=== PATIENT | male | born 1970 | race Caucasian/White ===

== ENCOUNTER 2023-08-03 08:15 | Day surgery (SDC) | payer BC ==
[2023-08-02 14:42] LABS: Absolute Lymphocytes (CBC) 1.7 K/uL (0.7-4.9); Hematocrit 36.9 % (39.6-49.0); MCV 93.6 fL (80-100); Platelets 225 thou/uL (152-406); RBC Red Blood Cell Count 3.94 M/uL (4.33-5.43)
--- NOTE | 2023-08-02 14:44 | RAD REPORT ---
EXAM DESCRIPTION: RAD - Chest Pa And Lat (2 Views) - 08/02/2023 2:36 pm CLINICAL HISTORY: Pre op pending hernia repair COMPARISON: <Comparisons> FINDINGS: Lines: None. Lungs: No evidence of edema or pneumonia. Pleural: No significant pleural effusions or pneumothorax. Cardiac: The heart size is within normal limits. Mediastinum: Within normal limits. Bones: No acute fractures. Other: None IMPRESSION: No acute cardiopulmonary disease.
[2023-08-02 14:51] LABS: Potassium 4.3 mEq/L (3.5-5.1)
[2023-08-03] MEDS ORDERED: Ringers Lactate 1,000 ML IV ONE (08:31)
[2023-08-03] MEDS ORDERED: HYDRALAZINE HCL 20 MG/ML VIAL ONE (08:47)
[2023-08-03] MEDS ORDERED: CEFAZOLIN SODIUM 1 GM/VIAL ONE (09:09)
[2023-08-03 09:19] VITALS: BP 178/121; TEMP 97.6; O2SAT 100
[2023-08-03] MEDS ORDERED: HYDROMORPHONE HCL 2 MG/ML inj ONE (09:35)
[2023-08-03] MEDS ORDERED: LIDOCAINE 2% MPF 5 ML VIAL ONE (09:37)
[2023-08-03] MEDS ORDERED: MIDAZOLAM HCL 2 MG/2 ML INJ ONE (09:37)
[2023-08-03] MEDS ORDERED: FENTANYL CITR 100 MCG/2 ML ONE (09:37)
[2023-08-03] MEDS ORDERED: ONDANSETRON 4 MG/2 ML VIAL ONE (09:37)
[2023-08-03] MEDS ORDERED: propofoL 200 MG/20 ML VIAL IV ONE (09:37)
[2023-08-03] MEDS ORDERED: ROCURONIUM 50 MG/5 ML VIAL IV ONE (09:37)
--- NOTE | 2023-08-04 13:26 | EKG ---
Test Date: 2023-08-02 Test Time: 15:20:16 Phone Engineer: DEVANTE MEASUREMENT RESULTS: Intervals: Rate: 66 [place]: 152 QRSD: 84 QT: 434 QTc: 454 [place]: P: -3 [place]: 152 QRS: 16 T: 61 INTERPRETIVE STATEMENTS: Normal sinus rhythm Moderate voltage criteria for LVH, may be normal variant Borderline ECG No previous ECG available for comparison Electronically Signed On 08-04-23 13:22:22 RAILCAR BRAKE OPERATOR by Wander Ivan
== END 2023-08-03 09:58 | disposition home or self-care (01) ==
LOC: OR 08:15
PROVIDERS: ATTEND Surgery
DX: K42.0 Umbilical hernia with obstruction, without gangrene (principal); Z53.9 Procedure and treatment not carried out, unspecified reason
CPT/HCPCS: 93005; 85025; 80048; 36415; 71046; J0360; J1170; J7120; J0690; J2001; J2250; J2405; J2704; J3010

== ENCOUNTER → 2023-08-03 | Emergency (ER) | payer BC ==
[~2023-08-03] MED LIST: cloNIDine HCL 0.1 MG TAB ONE; hydroCHLOROthiazide 25 MG TAB ONE
--- OUTSIDE RECORDS SUMMARY | 2023-08-03 10:19 | XMS REPORT | Continuity of Care Document ---
Author Name Unknown Address [address] [facility] [place] [address] [facility] thconnect Address [address] [facility] [address] [place] [address] Care Team Providers Care Cut Off Operator Scorer Name Role Phone Robi Garcia Attending Clinician Unavailable AMADA MUNOZ Attending Clinician Unavailable ELVIRA ALCARAZ Attending Clinician Unavailable Encounters Start Date/Time End Date/Time Encounter Type Admission Type Attending Clinicians Care Facility Care Department Encounter ID Source 2023-04-25 16:42:00 Outpatient Robi Garcia [facility] [id number] [facility] 2022-12-13 08:30:01 Outpatient Robi Garcia [facility] [id number] [facility] 2022-12-06 09:08:04 Outpatient Robi Garcia [facility] [id number] [facility] 2022-11-17 13:42:02 Outpatient Robi Garcia [facility] [id number] [facility] 2023-06-28 08:57:00 2023-06-28 08:57:00 Outpatient AMADA STAPLES [facility] [id number] [facility] 2018-03-21 08:24:00 2018-03-21 08:24:00 Outpatient ELVIRA DONALD [facility] [id number] [facility]
--- NOTE | 2023-08-03 11:13 | RAD REPORT ---
EXAM DESCRIPTION: RADChest Single View08/03/2023 10:58 am CLINICAL HISTORY: HTN COMPARISON: Chest Pa And Lat (2 Views) dated 08/02/2023 TECHNIQUE: Portable AP view of the chest. FINDINGS: The lungs are clear. No pneumothorax or effusion. The cardiomediastinal contours are unre markable. IMPRESSION: No acute cardiopulmonary process.
[2023-08-03 11:26] LABS: Absolute Lymphocytes (CBC) 1.4 K/uL (0.7-4.9); Hematocrit 37.7 % (39.6-49.0); Lymphocytes % 24.2 % (15.3-44.8); MCV 94.1 fL (80-100); MPV 6.7 fL (7.6-11.3); Platelets 208 thou/uL (152-406); RBC Red Blood Cell Count 4.01 M/uL (4.33-5.43)
[2023-08-03 11:45] LABS: Albumin 3.9 g/dL (3.4-5.0); Bilirubin Direct 0.3 mg/dL (0-0.2); Bilirubin Indirect, Calculated 1.1 mg/dL (0.2-0.8); Bilirubin Total 1.4 mg/dL (0.2-1.0); Potassium 3.8 mEq/L (3.5-5.1); Protein, Total 8.1 g/dL (6.4-8.2); Troponin High Sensitivity 11.4 pg/mL (<58.9)
--- NOTE | 2023-08-03 13:52 | ER ---
Nurse's Notes [facility] Name: Jean-Pierre Peralta Age: 53 yrs Sex: Male : 1970 Arrival Date: 08/03/2023 Time: 10:17 Bed 16 Private MD: Diagnosis: Essential (primary) hypertension;Alcoholic liver disease, unspecified Presentation: 08/03 10:35 Chief complaint: Patient states: Pt was brought to the ED from day surgery due to high kd3 blood pressure. Pt was scheduled to have a hernia repair but in his pre operative assessment he was found to have high blood pressure of 220/109. Pt is alert and oriented x 4. Pt denies chest pain, headache or dizziness. Pt is independently able to transfer to the ER stretcher. Coronavirus screen: Vaccine status: unknown. Ebola Screen: No symptoms or risks identified at this time. Initial Sepsis Screen: Does the patient meet any 2 criteria? No. Patient's initial sepsis screen is negative. Does the patient have a suspected source of infection? No. Patient's initial sepsis screen is negative. Risk Assessment: Do you want to hurt yourself or someone else? Patient reports no desire to harm self or others. Onset of symptoms was August 03, 2023. 10:35 Method Of Arrival: Stretcher kd3 10:35 Acuity: PRISCILLA 3 kd3 Triage Assessment: 10:41 General: Appears in no apparent distress. Behavior is calm, cooperative. Pain: Denies kd3 pain. Historical: - Allergies: 10:41 No Known Allergies; kd3 - Immunization history:: Adult Immunizations up to date. - Social history:: Smoking status: Patient reports the use of cigarette tobacco products, cigars. - Family history:: not pertinent. - Hospitalizations: : No recent hospitalization is reported. Screenin:23 [facility] ED Fall Risk Assessment (Adult) History of falling in the last 3 months, kd3 including since admission No falls in past 3 months (0 pts) Confusion or Disorientation No (0 pts) Intoxicated or Sedated No (0 pts) Impaired Gait No (0 pts) Mobility Assist Device Used No (0 pt) Altered Elimination No (0 pt) Score/Fall Risk Level 0 - 2 = Low Risk Maintained a safe environment. Abuse screen: Denies threats or abuse. Denies injuries from another. Nutritional screening: No deficits noted. Tuberculosis screening: No symptoms or risk factors identified. Assessment: 10:42 General: Appears in no apparent distress. Behavior is calm, cooperative, appropriate kd3 for age. Pain: Denies pain. Neuro: Level of Consciousness is awake, alert, obeys commands, Oriented to person, place, time, situation. 13:13 General: Pt provided a sandwich and snacks since he had been npo since midnight last kd3 night. . 14:57 General: Appears in no apparent distress. Behavior is calm, cooperative. Neuro: Level kd3 of Consciousness is awake, alert, obeys commands, Oriented to person, place, time, situation. Vital Signs: 10:35 BP 188 / 118; Pulse 84; Resp 16; Temp 98.2(O); Pulse Ox 100% on R/A; Weight 121.56 kg; kd3 Height 6 ft. 4 in. ; Pain 0/10; 11:50 BP 181 / 117; Pulse 73; Resp 16; Pulse Ox 100% on R/A; kd3 14:08 BP 195 / 117; Pulse 82; Resp 15; Pulse Ox 99% on R/A; kd3 10:35 Body Mass Index 32.62 (121.56 kg, 193.04 cm) kd3 10:35 Pain Scale: Adult kd3 ED Course: 10:21 Patient arrived in ED. iw 10:21 Nolan Nunes MD is Attending Physician. rn 10:35 Elvia Cobian, AMAIRANI is Primary Nurse. kd3 10:41 Triage completed. kd3 10:41 Arm band placed on right wrist. EKG completed in triage. Results shown to MD. kd3 11:00 XRAY Chest (1 view) In Process Unspecified. EDMS 11:23 Patient has correct armband on for positive identification. Provided Education on: . kd3 14:58 No provider procedures requiring assistance completed. IV discontinued, intact, kd3 bleeding controlled, No redness/swelling at site. Pressure dressing applied. Administered Medications: 13:09 Drug: Hydrochlorothiazide PO 25 mg PO once Route: PO; kd3 14:08 Follow up: Response: No adverse reaction kd3 14:12 Drug: cloNIDine PO 0.1 mg PO once Route: PO; kd3 14:58 Follow up: Response: Blood pressure is lowered kd3 Medication: 11:23 VIS not applicable for this client. kd3 Outcome: 13:52 Discharge ordered by . amairani 14:58 Discharged to home ambulatory, kd3 14:58 Condition: stable 14:58 Discharge instructions given to patient, family, Instructed on discharge instructions, follow up and referral plans. medication usage, Demonstrated understanding of instructions, follow-up care, medications, Prescriptions given X 1, 14:58 Patient left the ED. kd3 Signatures: Dispatcher [employer] EDSue Batista RN RN iw Nieto, Roman, MD MD rn Doucette, Kyli, RN RN kd3
--- NOTE | 2023-08-03 13:52 | EDPHYS ---
Physician Documentation [facility] Name: Jean-Pierre Peralta Age: 53 yrs Sex: Male : 1970 Arrival Date: 08/03/2023 Time: 10:17 Bed 16 Private MD: ED Physician Nolan Nunes HPI: 08/03 11:15 This 53 yrs old Male presents to ER via Stretcher with complaints of High Blood rn Pressure. 11:15 The patient has elevated blood pressure and discovered this at hospital. Onset: The rn symptoms/episode began/occurred at an unknown time. Modifying factors:. Severity of symptoms: At its worst the blood pressure was moderate, in the emergency department the blood pressure is unchanged. The patient has experienced similar episodes in the past. Patient was seen preop getting ready for elective umbilical hernia repair with Dr. Sykes when noted to have high blood pressure. Patient states was feeling a little anxious and has also had chronically elevated blood pressure with most recent doctor visits. Never put on blood pressure medication. Drinks moderate amount daily. Otherwise asymptomatic. Specifically denies any focal neurological deficit/chest pain/abdominal pain.. Historical: - Allergies: 10:41 No Known Allergies; kd3 - Immunization history:: Adult Immunizations up to date. - Social history:: Smoking status: Patient reports the use of cigarette tobacco products, cigars. - Family history:: not pertinent. - Hospitalizations: : No recent hospitalization is reported. ROS: 11:15 Constitutional: Negative for fever, chills, and weight loss, Eyes: Negative for injury, rn pain, redness, and discharge, ENT: Negative for injury, pain, and discharge, Neck: Negative for injury, pain, and swelling, Cardiovascular: Negative for chest pain, palpitations, and edema, Respiratory: Negative for shortness of breath, cough, wheezing, and pleuritic chest pain, Abdomen/GI: Negative for abdominal pain, nausea, vomiting, diarrhea, and constipation, Back: Negative for injury and pain, MS/Extremity: Negative for injury and deformity, Skin: Negative for injury, rash, and discoloration, Neuro: Negative for headache, weakness, numbness, tingling, and seizure, Exam: 11:15 Constitutional: This is a well developed, well nourished patient who is awake, alert, rn and in no acute distress. Head/Face: Normocephalic, atraumatic. Cardiovascular: Regular rate and rhythm. No pulse deficits. Respiratory: No increased work of breathing, no retractions or nasal flaring. Skin: Warm, dry MS/ Extremity: Pulses equal, no cyanosis. Neuro: Awake and alert, GCS 15, oriented to person, place, time, and situation. Cranial nerves II-XII grossly intact. Motor strength 5/5 in all extremities. Sensory grossly intact. Cerebellar exam normal. 12:28 ECG was reviewed by the Attending Physician. rn Vital Signs: 10:35 BP 188 / 118; Pulse 84; Resp 16; Temp 98.2(O); Pulse Ox 100% on R/A; Weight 121.56 kg; kd3 Height 6 ft. 4 in. ; Pain 0/10; 11:50 BP 181 / 117; Pulse 73; Resp 16; Pulse Ox 100% on R/A; kd3 14:08 BP 195 / 117; Pulse 82; Resp 15; Pulse Ox 99% on R/A; kd3 10:35 Body Mass Index 32.62 (121.56 kg, 193.04 cm) kd3 10:35 Pain Scale: Adult kd3 MDM: 10:21 Patient medically screened. rn 13:50 Differential diagnosis: hypertensive crisis, Malignant HTN, Asymptomatic hypertension. rn Data reviewed: vital signs, nurses notes, lab test result(s), EKG, radiologic studies, plain films, and as a result, I will discharge patient. Care significantly affected by the following chronic conditions: Hypertension. Counseling: I had a detailed discussion with the patient and/or guardian regarding the historical points, exam findings, and any diagnostic results supporting the discharge/admit diagnosis, lab results, radiology results, the need for outpatient follow up, to return to the emergency department if symptoms worsen or persist or if there are any questions or concerns that arise at home. Special discussion: I discussed with the patient/guardian in detail that at this point there is no indication for admission to the hospital. It is understood, however, that if the symptoms persist or worsen the patient needs to return immediately for re-evaluation. ED course: No acute findings on workup today. Troponin negative, no renal failure. Patient otherwise asymptomatic, hypertension noted during preop. Patient has follow-up tomorrow with Dr. Garcia at 8 AM. Will start on hydrochlorothiazide for now and patient will take a blood pressure journal. Had a long discussion with patient regarding need to stop drinking, already signs of abnormal liver function possible fatty liver versus alcoholic liver. I have personally reviewed all of the results, including but not limited to blood tests and imaging deemed necessary to safely discharge this patient at this time. All results given to and printed out for patient. I personally went over all the results with the patient and answered all questions. Patient will follow-up with PCP and or specialist as discussed. Return precautions given and understood.. 08/03 10:38 Order name: Basic Metabolic Panel; Complete Time: 11:50 rn 08/03 10:38 Order name: CBC with Diff; Complete Time: 11:50 rn 08/03 10:38 Order name: LFT's; Complete Time: 11:50 rn 08/03 10:38 Order name: NT PRO-BNP; Complete Time: 11:50 rn 08/03 10:38 Order name: Troponin HS; Complete Time: 11:50 rn 08/03 10:38 Order name: XRAY Chest (1 view); Complete Time: 11:20 rn 08/03 10:38 Order name: EKG; Complete Time: 10:39 rn 08/03 10:38 Order name: Cardiac monitoring; Complete Time: 11:21 rn 08/03 10:38 Order name: EKG - Nurse/Tech; Complete Time: 10:51 rn 08/03 10:38 Order name: IV Saline Lock; Complete Time: 11:14 rn 08/03 10:38 Order name: Labs collected and sent; Complete Time: 11: rn 08/03 10:38 Order name: O2 Per Protocol; Complete Time: 10: rn 08/03 10:38 Order name: O2 Sat Monitoring; Complete Time: 10:51 rn EC:28 Rate is 71 beats/min. Rhythm is regular. QRS [place] is Normal. OK interval is normal. QRS rn interval is normal. QT interval is normal. No Q waves. T waves are Normal. No ST changes noted. Clinical impression: NSR w/ Non-specific ST/T Changes. Interpreted by me. Reviewed by me. Administered Medications: 13:09 Drug: Hydrochlorothiazide PO 25 mg PO once Route: PO; kd3 14:08 Follow up: Response: No adverse reaction kd3 14:12 Drug: cloNIDine PO 0.1 mg PO once Route: PO; kd3 14:58 Follow up: Response: Blood pressure is lowered kd3 Disposition Summary: 08/03/23 13:52 Discharge Ordered Notes: Location: Home rn Problem: new rn Symptoms: have improved rn Condition: Stable rn Diagnosis - Essential (primary) hypertension rn - Alcoholic liver disease, unspecified rn Followup: rn - With: Private Physician - When: As needed - Reason: Recheck today's complaints, Re-evaluation by your physician Discharge Instructions: - Discharge Summary Sheet rn - Hypertension, Adult rn - Heart Disease rn wound care - Alcoholic Liver Disease, [id number] rn - How to Take Your Blood Pressure, [id number] rn - Managing Your Hypertension rn Forms: - Medication Reconciliation Form rn - Thank You Letter rn - Antibiotic assistant prosecuting attorney - Prescription Opioid Use rn - Patient Portal Instructions rn - Leadership Thank You Letter rn Prescriptions: - Hydrochlorothiazide 50 mg Oral Tablet - take 1 tablet ORAL route once daily .; 30 tablet; Refills: 0, Product Selection rn Permitted Signatures: Dispatcher [employer] Nolan Felix MD MD rn Doucette, Kyli RN RN kd3
[2023-08-03 15:42] VITALS: TEMP 98.2
[2023-08-03 15:50] VITALS: BP 195/117; O2SAT 99
--- NOTE | 2023-08-04 13:24 | EKG ---
Test Date: 2023-08-03 Test Time: 10:44:14 Spindle Carver: ELLY MEASUREMENT RESULTS: Intervals: Rate: 71 [place]: 144 QRSD: 88 QT: 418 QTc: 454 [place]: P: 3 [place]: 144 QRS: 16 T: 70 INTERPRETIVE STATEMENTS: Normal sinus rhythm Nonspecific T wave abnormality Abnormal ECG Compared to ECG 08/02/2023 15:20:16 T-wave abnormality now present Left ventricular hypertrophy no longer present Electronically Signed On 08-04-23 13:20:10 TENNIS BALL COVERER HAND by Wander Ivan
== END ==
LOC: ER 10:17
DX: I10 Essential (primary) hypertension (principal); K70.9 Alcoholic liver disease, unspecified; Z72.0 Tobacco use
CPT/HCPCS: 36415; 71045; 80048; 80076; 83880; 84484; 85025; 93005; 99284